=== PATIENT | female | born 2000 | race Caucasian/White ===

== ENCOUNTER 2023-09-24 16:31 | Emergency (ER) | payer SELFPAY | END 2023-09-24 17:06 | disposition left against medical advice (07) | LOC: M ED 16:31 | DX: Z53.21 Procedure and treatment not carried out due to patient leaving prior to being seen by health care provider (principal) ==

== ENCOUNTER → 2023-10-09 | Outpatient (REF) | payer OTHER | LOC: M PLALAB 10:24 | PROVIDERS: ATTEND Advanced Practice Midwife | DX: Z34.81 Encounter for supervision of other normal pregnancy, first trimester (principal) ==

== ENCOUNTER → 2023-10-26 | Outpatient (CLI) | payer OTHER ==
[2023-10-26 18:07] LABS: HEMATOCRIT 35.1 % (36.0-47.0); HEMOGLOBIN 12.1 g/dl (12.0-15.5); MEAN CORPUSCULAR HGB CONC 34.5 g/dl (32.0-36.5); MEAN CORPUSCULAR VOLUME 87.1 fl (80.0-96.0); PLATELET COUNT, AUTOMATED 227 10^3/uL (150-450); RED BLOOD COUNT 4.03 10^6/uL (4.00-5.40); WHITE BLOOD COUNT 9.8 10^3/uL (4.0-10.0)
[2023-10-26 18:34] LABS: CREATININE,RANDOM URINE 27.5 MG/DL
[2023-10-26 18:36] LABS: TOTAL PROTEIN,RANDOM URINE < 6.0 MG/DL (0.0-14.0)
[2023-10-26 18:38] LABS: URIC ACID 2.8 MG/DL (3.1-7.8)
[2023-10-26 18:40] LABS: LDH LACTATE DEHYDROGENASE 118 U/L (120-246)
[2023-10-26 18:41] LABS: ALT/SGPT 14 U/L (7.0-40); AST/SGOT < 8 U/L (<34); BILIRUBIN,TOTAL 0.4 MG/DL (0.3-1.2); CREATININE FOR GFR 0.47 MG/DL (0.55-1.30)
[2023-10-26 18:55] LABS: GC DNA AMPLIFICATION NEGATIVE (NEGATIVE)
[2023-10-26 19:15] LABS: HIV 1&2 SCREEN NEGATIVE (NEGATIVE)
[2023-10-26 19:23] LABS: HEPATITIS C VIRUS ABY INDEX 0.03 INDEX (<0.8)
== END ==
LOC: M PLALAB 15:13
PROVIDERS: ATTEND Advanced Practice Midwife
DX: Z34.81 Encounter for supervision of other normal pregnancy, first trimester (principal); Z3A.00 Weeks of gestation of pregnancy not specified

== ENCOUNTER → 2024-01-15 | Outpatient (CLI) | payer OTHER | LOC: M RAD 10:34 | PROVIDERS: ATTEND Advanced Practice Midwife | DX: O09.292 Supervision of pregnancy with other poor reproductive or obstetric history, second trimester (principal); Z3A.23 23 weeks gestation of pregnancy ==

== ENCOUNTER → 2024-01-28 | Outpatient (REF) | payer OTHER | LOC: M PLALAB 16:29 | PROVIDERS: ATTEND Obstetrics & Gynecology | DX: Z53.9 Procedure and treatment not carried out, unspecified reason (principal) ==

== ENCOUNTER → 2024-03-04 | Outpatient (CLI) | payer OTHER ==
[2024-03-04 18:31] LABS: HEMATOCRIT 30.2 % (36.0-47.0); HEMOGLOBIN 9.8 g/dl (12.0-15.5); MEAN CORPUSCULAR HEMOGLOBIN 26.9 pg (27.0-33.0); MEAN CORPUSCULAR HGB CONC 32.5 g/dl (32.0-36.5); PLATELET COUNT, AUTOMATED 254 10^3/uL (150-450); RED BLOOD COUNT 3.64 10^6/uL (4.00-5.40); WHITE BLOOD COUNT 9.6 10^3/uL (4.0-10.0)
[2024-03-04 18:37] LABS: GLUCOSE CHALLENGE TEST 1 HOUR 169 MG/DL (LESS THAN 140)
[2024-03-04 19:12] LABS: HIV 1&2 SCREEN NEGATIVE (NEGATIVE)
[2024-03-04 19:20] LABS: HEPATITIS C VIRUS ABY INDEX 0.02 INDEX (<0.8)
[2024-03-04 21:17] LABS: GC DNA AMPLIFICATION NEGATIVE (NEGATIVE)
== END ==
LOC: M PLALAB 14:07
PROVIDERS: ATTEND Obstetrics & Gynecology
DX: Z34.82 Encounter for supervision of other normal pregnancy, second trimester (principal)

== ENCOUNTER → 2024-03-17 | Outpatient (CLI) | payer OTHER | LOC: M LAB 07:10 | PROVIDERS: ATTEND Obstetrics & Gynecology | DX: O99.810 Abnormal glucose complicating pregnancy (principal) ==

== ENCOUNTER → 2024-03-19 | Outpatient (CLI) | payer OTHER | LOC: M RAD 13:42 | PROVIDERS: ATTEND Nurse Practitioner Family | DX: Z34.83 Encounter for supervision of other normal pregnancy, third trimester (principal); Z3A.33 33 weeks gestation of pregnancy; Z36.2 Encounter for other antenatal screening follow-up ==

== ENCOUNTER → 2024-03-20 | Outpatient (REF) | payer OTHER ==
[2024-03-20 16:14] LABS: CREATININE,RANDOM URINE 25.9 MG/DL
[2024-03-20 16:20] LABS: TOTAL PROTEIN,RANDOM URINE < 6.0 MG/DL (0.0-14.0)
== END ==
LOC: M PLALAB 12:20
PROVIDERS: ATTEND Nurse Practitioner Family
DX: O09.293 Supervision of pregnancy with other poor reproductive or obstetric history, third trimester (principal)

== ENCOUNTER 2024-04-04 08:32 | Outpatient (CLI) | payer OTHER ==
[~2024-04-04] VITALS: Ht 162.6 cm; Wt 99.3 kg
[~2024-04-04 08:32] MED LIST: ALBUTEROL SULFATE 2.5MG/0.5ML INH NEB SOLN INH PRN; EPINEPHrine INJ 1 MG/ML 1ML AMP IM PRN; diphenhydrAMINE 50MG/ML VIAL IV PRN; methylPREDNISolone 125MG 2ML VIAL IV PRN
[2024-04-04] MEDS: ACETAMINOPHEN 650 MG PO ONE (08:41)
[2024-04-04] MEDS: diphenhydrAMINE 25MG CAP PO ONE (08:41)
[2024-04-04 08:45] VITALS: BP 138/78; O2SAT 100
[2024-04-04] MEDS: IRON SUCROSE 200 MG IVP IV ONE (09:11)
[2024-04-04 10:00] VITALS: BP 144/77; O2SAT 99
[2024-04-04] MEDS ORDERED: IRON SUCROSE 200 MG IVP IV ONE (16:55)
== END 2024-04-04 10:00 ==
LOC: M INFU 08:32
PROVIDERS: ATTEND Nurse Practitioner Family
DX: D64.9 Anemia, unspecified (principal)
CPT/HCPCS: 96374; J1756

== ENCOUNTER 2024-04-14 10:55 | Outpatient (CLI) | payer OTHER ==
[~2024-04-14] VITALS: Ht 162.6 cm; Wt 98.2 kg
[2024-04-14 10:55] VITALS: BP 148/78; O2SAT 98
[2024-04-14] MEDS: diphenhydrAMINE 25MG PO PRIOR TO INFUSION PO ONE (10:56)
[2024-04-14] MEDS: IRON SUCROSE 200MG IVP IV ONE (10:57)
[2024-04-14] MEDS: ACETAMINOPHEN 650MG PO PRIOR TO INFUSION PO ONE (10:57)
[2024-04-14 11:30] VITALS: BP 119/66; O2SAT 96
== END 2024-04-14 11:30 | disposition home or self-care (01) ==
LOC: M INFU 10:55
PROVIDERS: ATTEND Nurse Practitioner Family
DX: D64.9 Anemia, unspecified (principal)
CPT/HCPCS: 96374; J1756

== ENCOUNTER → 2024-04-17 | Outpatient (REF) | payer OTHER | LOC: M SFHCWAGY 14:22 | PROVIDERS: ATTEND Obstetrics & Gynecology | DX: Z36.89 Encounter for other specified antenatal screening (principal); Z3A.37 37 weeks gestation of pregnancy ==

== ENCOUNTER 2024-05-01 08:05 | Inpatient (IN) | payer OTHER ==
[2024-05-01] VITALS (9 sets, daily range): BP systolic 113–140; BP diastolic 55–87
[~2024-05-01] VITALS: Ht 162.6 cm; Wt 102.2 kg
[2024-05-01] MEDS ORDERED: PRENTAB9 PO (08:26)
[2024-05-01] MEDS ORDERED: HYDR1TAB33 PO (08:30)
[2024-05-01] MEDS ORDERED: LEXA1TAB2 PO (08:30)
[2024-05-01] MEDS ORDERED: ASPI81CH33 PO (08:30)
[2024-05-01] MEDS ORDERED: ZOLP5TAB PO (08:30)
[2024-05-01] MEDS ORDERED: ACET-907 PO (08:30)
[2024-05-01] MEDS ORDERED: HOME MED LIST COMPLETE! XX SCH (08:30)
[2024-05-01] MEDS ORDERED: TUMS500C PO (08:30)
[2024-05-01] MEDS ORDERED: BUSP10TA PO (08:30)
[2024-05-01] MEDS ORDERED: ePHEDrine SULFATE 25 MG/5 ML(5MG/ML) SYRINGE IVP PRN ×2 (09:35→22:20)
[2024-05-01] MEDS: OXYTOCIN INJ 10UNITS/ML 1ML VIAL IV ONE (09:35)
[2024-05-01] MEDS ORDERED: NALOXONE INJ 0.4MG/1ML VIAL IV PRN ×2 (09:35→22:20)
[2024-05-01] MEDS ORDERED: EPIDURAL/PCA KEYS XX PRN ×2 (09:35→22:20)
[2024-05-01] MEDS: miSOPROStol 50MCG 1/2 TABLET PO ONE (10:13)
[2024-05-01] MEDS: ACETAMINOPHEN 500 MG TAB PO PRN (10:27)
[2024-05-01 10:28] LABS: HEMOGLOBIN 10.7 g/dl (12.0-15.5); MEAN CORPUSCULAR HEMOGLOBIN 24.8 pg (27.0-33.0); MEAN CORPUSCULAR HGB CONC 31.5 g/dl (32.0-36.5); MEAN CORPUSCULAR VOLUME 78.9 fl (80.0-96.0); PLATELET COUNT, AUTOMATED 236 10^3/uL (150-450); RED BLOOD COUNT 4.31 10^6/uL (4.00-5.40); WHITE BLOOD COUNT 7.8 10^3/uL (4.0-10.0)
[2024-05-01 10:50] LABS: ALBUMIN 3.1 G/DL (3.2-5.2); ALKALINE PHOSPHATASE 127 U/L (35-104); ALT/SGPT 18 U/L (7.0-40); AST/SGOT 16 U/L (<34); BILIRUBIN,TOTAL 0.4 MG/DL (0.3-1.2); BLOOD UREA NITROGEN 8 MG/DL (9-23); CALCIUM LEVEL 9.6 MG/DL (8.5-10.1); CARBON DIOXIDE LEVEL 22 MMOL/L (20-31); CHLORIDE LEVEL 102 MMOL/L (98-107); CREATININE FOR GFR 0.48 MG/DL (0.55-1.30); GLOMERULAR FILTRATION RATE > 60.0 (>60); GLUCOSE, FASTING 94 MG/DL (60-100); POTASSIUM SERUM 3.6 MMOL/L (3.5-5.1); SODIUM LEVEL 136 MMOL/L (136-145); TOTAL PROTEIN 7.3 G/DL (5.7-8.2)
[2024-05-01 11:22] LABS: HIV 1&2 SCREEN NEGATIVE (NEGATIVE)
[2024-05-01 11:30] LABS: HEPATITIS C VIRUS ABY INDEX 0.04 INDEX (<0.8)
[2024-05-01 14:12] LABS: TOTAL PROTEIN,RANDOM URINE 32.3 MG/DL (0.0-14.0)
[2024-05-01 14:17] LABS: CREATININE,RANDOM URINE 141.3 MG/DL
[2024-05-01] MEDS: miSOPROStol 50MCG 1/2 TABLET BUC ONE (14:26)
[2024-05-01] MEDS ORDERED: LR 500 ML IV PRN (22:20)
[2024-05-01] MEDS ORDERED: diphenhydrAMINE 50MG/ML VIAL IV PRN (22:20)
[2024-05-01] MEDS: LR 500 ML IV PRN (22:37)
[2024-05-01] MEDS: FENTANYL/ROPIVACAINE/NACL BAG 100 ML EPIDURAL SCH (22:39)
[2024-05-02] VITALS (27 sets, daily range): BP systolic 96–143; BP diastolic 48–84; O2SAT 97–99
[2024-05-02] MEDS: OXYTOCIN DRIP 30 UNITS in IV 1 EA IV SCH ×3 (00:27→15:23)
[2024-05-02] MEDS: diphenhydrAMINE 50MG/ML VIAL IV PRN (05:09)
[2024-05-02] MEDS: LR 1,000 ML IV SCH (07:15)
[2024-05-02] MEDS: ONDANSETRON 4MG 2ML VIAL IV PRN (08:48)
[2024-05-02] MEDS: CALCIUM CARBONATE 500 MG CHEW U/D PO PRN (09:44)
[2024-05-02] MEDS ORDERED: ONDANSETRON 4MG 2ML VIAL IV PRN (14:55)
[2024-05-02] MEDS ORDERED: RHOGAM 300MCG (1500IU) INJ IM SCH (14:55)
[2024-05-02] MEDS ORDERED: CALCIUM CARBONATE 500 MG CHEW U/D PO PRN (14:55)
[2024-05-02] MEDS ORDERED: ANUSOL HC CREAM 30GM TOP PRN (14:55)
[2024-05-02] MEDS ORDERED: IBUPROFEN 600MG TAB PO PRN (14:55)
[2024-05-02] MEDS: IBUPROFEN 800 MG TAB PO PRN (16:22)
[2024-05-02] MEDS: METHYLERGONOVINE MALEATE 0.2MG/ML 1ML VIAL IM ONE (16:54)
[2024-05-02] MEDS: ACETAMINOPHEN 500 MG TAB PO PRN (17:40)
[2024-05-02] MEDS: ESCITALOPRAM OXALATE 10 MG TAB (LEXAPRO) PO SCH (20:53)
[2024-05-02] MEDS: hydrOXYzine 50 MG TAB PO SCH (20:53)
[2024-05-02] MEDS: busPIRone 10 MG TAB PO SCH (20:53)
[2024-05-02] MEDS: DIBUCAINE 1% OINTMENT 30GM TOP PRN (20:54)
[2024-05-03 05:38] VITALS: BP 115/61; O2SAT 98
[2024-05-03] MEDS: DOCUSATE SODIUM 100MG CAPSULE PO PRN (09:14)
[2024-05-03] MEDS: PRENATAL VITAMINS CHEWABLE TABLET PO SCH (09:14)
[2024-05-03 18:00] VITALS: BP 112/36; O2SAT 100
[2024-05-03 20:32] VITALS: BP 126/72; O2SAT 95
[2024-05-03] MEDS: ACETAMINOPHEN 325 MG TAB PO PRN (23:49)
[2024-05-04 06:00] VITALS: BP 120/76; O2SAT 99
[2024-05-04] MEDS: MEASLES,MUMPS,RUBELLA VACCINE INJ (MMR-II) SC.IMMUN ONE (09:00)
[2024-05-04] MEDS ORDERED: IBUP80TA PO (09:47)
[2024-05-04] MEDS ORDERED: ACET-683 PO (09:47)
== END 2024-05-04 12:00 | disposition home or self-care (01) | DRG 807 ==
LOC: M LDI 08:05 → M OBS 05-02 17:18
PROVIDERS: ADMIT Obstetrics & Gynecology; ATTEND Obstetrics & Gynecology
PROC: 3E097GC Introduction of Other Therapeutic Substance into Nose, Via Natural or Artificial Opening (ICD-10-PCS; 2024-05-01)
PROC: 3E033VJ Introduction of Other Hormone into Peripheral Vein, Percutaneous Approach (ICD-10-PCS; 2024-05-01)
PROC: 10E0XZZ Delivery of Products of Conception, External Approach (ICD-10-PCS; principal; 2024-05-02)
PROC: 0KQM0ZZ Repair Perineum Muscle, Open Approach (ICD-10-PCS; 2024-05-02)
PROC: 10907ZC Drainage of Amniotic Fluid, Therapeutic from Products of Conception, Via Natural or Artificial Opening (ICD-10-PCS; 2024-05-02)
DX: O70.1 Second degree perineal laceration during delivery (principal); Z37.0 Single live birth; Z3A.39 39 weeks gestation of pregnancy; Z79.899 Other long term (current) drug therapy; F41.9 Anxiety disorder, unspecified; F32.A Depression, unspecified; O99.344 Other mental disorders complicating childbirth